=== PATIENT | male | born 1970 | race American Indian/Alaskan Native ===

== ENCOUNTER 2018-07-29 04:33 | Inpatient (IN) | payer OTHER ==
[2018-07-29] MEDS ORDERED: DUONEB *Not for PRN Use IH ONE ×2 (04:55→04:56)
[2018-07-29] MEDS ORDERED: PROVENTIL IH ONE ×4 (04:55→08:30)
--- NOTE | 2018-07-29 04:57 | Emergency Department Report ---
Chief Complaint: Dyspnea/Respdistress Stated Complaint: JOHANNA Time Seen by Provider: 07/29/18 04:45 - HPI History of Present Illness: 48-year-old -[place] male presents to the emergency room for dyspnea for 1 day. Patient complains of productive cough of yellow sputum. Patient reports pain to his left ribs. Patient reports that he has run out of his asthma medication for 2 months really only needed it for 1 day. - ROS Review of Systems: Dyspnea, rib pain, wheezing, productive cough Fever no chills - Exam Vital Signs: Vital Signs 07/29/18 07/29/18 07/29/18 04:40 04:42 04:44 Temperature 98.7 F Pulse Rate 77 106 H Respiratory 20 17 20 Rate Blood Pressure 125/78 153/109 O2 Sat by Pulse 80 L 99 80 L Oximetry Physical Exam: GENERAL APPEARANCE: Well developed, well nourished, in no acute distress. SKIN: Inspection of the skin reveals no rashes, ulcerations or petechiae. HEENT: The sclerae were anicteric and conjunctivae were pink and moist. Extraocular movements were intact and pupils were equal, round, NECK: Supple and symmetric. CHEST: Normal AP diameter and normal contour without any kyphoscoliosis. LUNGS: Auscultation of the lungs revealed rhonchus throughout with diminished breath sounds bilateral CARDIOVASCULAR: There was a regular rate and rhythm without any murmurs, gallops , rubs MSE screening note: Focused history and physical exam performed. Due to findings the following was ordered: CBC CMP, d-dimer, chest x-ray portable, IV insertion, Katherin Medrol 125 mg IV. mgso4 2grams IV ED Disposition for MSE Condition: Stable
[2018-07-29] MEDS ORDERED: MAGNESIUM SULFATE 2GM/50ML 2 GM/50 ML BAG IV ONE (05:03)
[2018-07-29] MEDS ORDERED: ATROVENT IH ONE (05:07)
--- NOTE | 2018-07-29 05:18 | XRay Report ---
FINAL REPORT EXAM: XR CHEST 1V AP HISTORY: sob sat 80, wheezing TECHNIQUE: A portable upright view of the chest was obtained. FINDINGS: The lungs are hyperinflated with flattening of the hemidiaphragms. There are no infiltrates or congestion. The heart size is normal. Pleural fluid is not seen. The skeletal structures are well-maintained. IMPRESSION: Hyperinflation. No infiltrates or congestion.
[2018-07-29 05:24] LABS: Basophils % (Auto) 0.3 % (0.0-1.8); Eosinophils # (Auto) 0.2 K/mm3 (0.0-0.4); Eosinophils % (Auto) 1.5 % (0.0-4.3); Hematocrit 44.9 % (35.5-45.6); Hemoglobin 14.4 gm/dl (11.8-15.2); Lymphocytes # (Auto) 2.9 K/mm3 (1.2-5.4); Mean Corpuscular HGB Conc 32 % (32-34); Mean Corpuscular Hemoglobin 26 pg (28-32); Mean Corpuscular Volume 82 fl (84-94); Monocytes % (Auto) 7.2 % (0.0-7.3); Platelet Count 187 K/mm3 (140-440); Red Blood Count 5.47 M/mm3 (3.65-5.03); Red Cell Distribution Width 13.2 % (13.2-15.2)
[2018-07-29 05:41] LABS: Alanine Aminotransferase 68 units/L (7-56); Albumin 4.8 g/dL (3.9-5); BUN/Creatinine Ratio 10; Blood Urea Nitrogen 6 mg/dL (9-20); Calcium 8.8 mg/dL (8.4-10.2); Hemolysis Index 9
[2018-07-29] MEDS ORDERED: SOLU-Medrol IV ONE (06:15)
[2018-07-29] MEDS ORDERED: NORCO 5/325 PO ONE (06:26)
--- NOTE | 2018-07-29 06:59 | Emergency Department Report ---
ED Shortness of Breath HPI - General Chief Complaint: Dyspnea/Respdistress Stated Complaint: JOHANNA Time Seen by Provider: 07/29/18 04:45 Source: patient Mode of arrival: Stretcher Limitations: No Limitations - History of Present Illness Initial Comments: 48-year-old male with a past medical history of asthma presents with shortness of breath 1 day. Associated wheezing and cough productive of yellow sputum. Patient complains of left-sided rib pain worse with palpation and inspiration. No fever, leg edema, or calf tenderness. Patient ran out of his inhaler and nebulizer treatment. Denies history of previous intubations.. 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 Pt denies home O2 use. - Related Data Allergies Allergy/AdvReac Type Severity Reaction Status Date / Time aspirin Allergy Unknown Verified 07/29/18 04:43 ED Review of Systems ROS: Stated complaint: JOHANNA Other details as noted in HPI Comment: All other systems reviewed and negative ED Past Medical Hx - Past Medical History Previous Medical History?: Yes Hx Asthma: Yes - Surgical History Past Surgical History?: Yes Additional Surgical History: right foot - Social History Smoking Status: Current Every Day Smoker Substance Use Type: Alcohol ED Physical Exam - General Limitations: No Limitations - Other Other exam information: General: No limitations, patient is alert in no acute distress Head exam: Atraumatic, normocephalic Eyes exam: Normal appearance ENT: Moist mucous membrane, normal oropharynx Neck exam: Normal inspection, full range of motion, no meningismus nontender Respiratory exam: Bilateral coarse wheezing. Reproducible left-sided chest wall tenderness Cardiovascular: Normal rate and rhythm, normal heart sounds Abdomen: Soft, nondistended, and nontender, with normal bowel sounds, no rebound, or guarding Extremity: Full range of motion normal inspection no deformity, no calf tenderness or edema Back: Normal Inspection, full range of motion, no tenderness Neurologic: Alert, oriented x3, cranial nerves intact, no motor or sensory deficit Psychiatric: normal affect, normal mood Skin: Warm, dry, intact ED Course Vital Signs 07/29/18 07/29/18 07/29/18 04:35 04:36 04:40 Temperature Pulse Rate 77 Pulse Rate [ 80 Throughout] Respiratory 20 Rate Respiratory 20 Rate [ Throughout] Blood Pressure 125/78 O2 Sat by Pulse 91 80 L Oximetry 07/29/18 07/29/18 07/29/18 04:42 04:44 04:47 Temperature 98.7 F Pulse Rate 106 H 76 Pulse Rate [ Throughout] Respiratory 17 20 16 Rate Respiratory Rate [ Throughout] Blood Pressure 153/109 O2 Sat by Pulse 99 80 L 99 Oximetry 07/29/18 07/29/18 07/29/18 04:50 05:00 05:22 Temperature Pulse Rate 85 Pulse Rate [ 86 76 Throughout] Respiratory 21 Rate Respiratory 20 17 Rate [ Throughout] Blood Pressure 136/82 O2 Sat by Pulse 94 Oximetry 07/29/18 07/29/18 07/29/18 05:31 07:01 07:14 Temperature Pulse Rate 72 68 Pulse Rate [ Throughout] Respiratory 17 18 20 Rate Respiratory Rate [ Throughout] Blood Pressure 136/82 136/82 O2 Sat by Pulse 96 95 Oximetry 07/29/18 08:01 Temperature Pulse Rate 84 Pulse Rate [ Throughout] Respiratory 14 Rate Respiratory Rate [ Throughout] Blood Pressure 136/82 O2 Sat by Pulse 77 L Oximetry ED Medical Decision Making - Lab Data Result diagrams: 07/29/18 05:03 07/29/18 05:03 Lab Results 07/29/18 07/29/18 07/29/18 Range/Units 05:03 05:03 05:03 WBC 13.8 H (4.5-11.0) K/mm3 RBC 5.47 H (3.65-5.03) M/mm3 Hgb 14.4 (11.8-15.2) gm/dl Hct 44.9 (35.5-45.6) % MCV 82 L (84-94) fl MCH 26 L (28-32) pg MCHC 32 (32-34) % RDW 13.2 (13.2-15.2) % Plt Count 187 (140-440) K/mm3 Lymph % (Auto) 21.0 (13.4-35.0) % [place] % (Auto) 7.2 (0.0-7.3) % Eos % (Auto) 1.5 (0.0-4.3) % Baso % (Auto) 0.3 (0.0-1.8) % Lymph # 2.9 (1.2-5.4) K/mm3 [place] # 1.0 H (0.0-0.8) K/mm3 Eos # 0.2 (0.0-0.4) K/mm3 Baso # 0.0 (0.0-0.1) K/mm3 Seg Neutrophils % 70.0 (40.0-70.0) % Seg Neutrophils # 9.7 H (1.8-7.7) K/mm3 D-Dimer 140.44 (0-234) ng/mlDDU POC ABG pH (7.35-7.45) POC ABG pCO2 (35-45) POC ABG pO2 (80-105) POC ABG HCO3 POC ABG Total CO2 POC ABG O2 Sat POC ABG Base Excess FiO2 % Sodium 144 (137-145) mmol/L Potassium 4.0 (3.6-5.0) mmol/L Chloride 103.0 (98-107) mmol/L Carbon Dioxide 26 (22-30) mmol/L Anion Gap 19 mmol/L BUN 6 L (9-20) mg/dL Creatinine 0.6 L (0.8-1.5) mg/dL Estimated GFR > 60 ml/min BUN/Creatinine Ratio 10 % Glucose 94 (75-100) mg/dL Calcium 8.8 (8.4-10.2) mg/dL Total Bilirubin 0.20 (0.1-1.2) mg/dL AST 103 H (5-40) units/L ALT 68 H (7-56) units/L Alkaline Phosphatase 76 (35-129) units/L Total Protein 7.8 (6.3-8.2) g/dL Albumin 4.8 (3.9-5) g/dL Albumin/Globulin Ratio 1.6 % 07/29/18 Range/Units 05:07 WBC (4.5-11.0) K/mm3 RBC (3.65-5.03) M/mm3 Hgb (11.8-15.2) gm/dl Hct (35.5-45.6) % MCV (84-94) fl MCH (28-32) pg MCHC (32-34) % RDW (13.2-15.2) % Plt Count (140-440) K/mm3 Lymph % (Auto) (13.4-35.0) % [place] % (Auto) (0.0-7.3) % Eos % (Auto) (0.0-4.3) % Baso % (Auto) (0.0-1.8) % Lymph # (1.2-5.4) K/mm3 [place] # (0.0-0.8) K/mm3 Eos # (0.0-0.4) K/mm3 Baso # (0.0-0.1) K/mm3 Seg Neutrophils % (40.0-70.0) % Seg Neutrophils # (1.8-7.7) K/mm3 D-Dimer (0-234) ng/mlDDU POC ABG pH 7.344 L (7.35-7.45) POC ABG pCO2 53.8 H (35-45) POC ABG pO2 72 L (80-105) POC ABG HCO3 29.3 POC ABG Total CO2 31 POC ABG O2 Sat 93 POC ABG Base Excess 4 FiO2 36 % Sodium (137-145) mmol/L Potassium (3.6-5.0) mmol/L Chloride (98-107) mmol/L Carbon Dioxide (22-30) mmol/L Anion Gap mmol/L BUN (9-20) mg/dL Creatinine (0.8-1.5) mg/dL Estimated GFR ml/min BUN/Creatinine Ratio % Glucose (75-100) mg/dL Calcium (8.4-10.2) mg/dL Total Bilirubin (0.1-1.2) mg/dL AST (5-40) units/L ALT (7-56) units/L Alkaline Phosphatase (35-129) units/L Total Protein (6.3-8.2) g/dL Albumin (3.9-5) g/dL Albumin/Globulin Ratio % - Radiology Data Radiology results: report reviewed EXAM: XR CHEST 1V AP HISTORY: sob sat 80, wheezing TECHNIQUE: A portable upright view of the chest was obtained. FINDINGS: The lungs are hyperinflated with flattening of the hemidiaphragms. There are no infiltrates or congestion. The heart size is normal. Pleural fluid is not seen. The skeletal structures are well-maintained. IMPRESSION: Hyperinflation. No infiltrates or congestion. - Medical Decision Making despite nebs, steroids, mag pt continue to have significant wheeze room air sat 78% incr to 85% on 2 L O2, then 91-92% on 4 L ABG on FIO2 36% + hypoxia and co2 retention with mild acidosis pt denies hx of copd or home O2 use. + long time smoking hx so pt may also have copd in addition to asthma pt will be admitted to for further treatment - Differential Diagnosis asthma, bronchitis, pneumonia Critical Care Time: No Critical care attestation.: If time is entered above; I have spent that time in minutes in the direct care of this critically ill patient, excluding procedure time. ED Disposition Clinical Impression: Status asthmaticus, Hypoxia, Acute respiratory acidosis Disposition: OP ADMIT IP TO THIS HOSP Is pt being admited?: Yes Condition: Stable Time of Disposition: 08:32 (yazan Brar)
--- NOTE | 2018-07-29 10:05 | History and Physical Report ---
History of Present Illness Date of examination: 07/29/18 Date of admission: 07/29/18 08:33 Chief complaint: shortness of breath History of present illness: Patient is a 48-year-old gentleman with a history of asthma and has been out of his albuterol neb and inhaler for the past 3 months woke up at about 3 AM this morning with severe shortness of breath and tight feeling in this long coughing and wheezing. Wanted to withdraw the morning however symptoms getting worse for which his girlfriend called EMS. Was brought to the emergency department. Patient was given multiple breathing treatments with IV Solu-Medrol. Symptoms improved. However he was still wheezing with poor breath sounds. Emergency department and was found to have leukocytosis of 13.8. ABG showed hypoxia of PO2 of 72. S3 was 100 [address].m. LT was 60. Patient has a history of alcohol use disorder. He smokes about a pack a day for the past 33 years. Admission was requested. Patient denies any fever. Denies any chest pain. No syncope. John's medication from [place] however misplaced his last prescription was given weeks ago Past History Past Medical History: other (asthma) Social history: smoking, alcohol abuse Family history: other (asthma) Medications and Allergies Allergies Allergy/AdvReac Type Severity Reaction Status Date / Time aspirin Allergy Unknown Verified 07/29/18 04:43 Home Medications Medication Instructions Recorded Confirmed Last Taken Type ALBUTEROL Inhaler(NF) [VENTOLIN 1 puff INHALATION PRN PRN 07/29/18 07/29/18 Unknown History Inhaler(NF)] Active Meds: Active Medications Albuterol/Ipratropium (Duoneb *Not For Prn Use*) 1 ampul IH Q6HRT [facility] Enoxaparin Sodium (Lovenox) 40 mg SUB-Q QDAY DEMARCO Levofloxacin/Dextrose (Levaquin 750mg/150ml) 750 mg in 150 mls @ 100 mls/hr IV Q24HR DEMARCO; Protocol Methylprednisolone Sodium Succinate (Solu-Medrol) 40 mg IV Q6HR DEMARCO Review of systems Constitutional: Well Nouridhed and Well developed. Head: NC/ AT Eyes: Denies any visual impairments. No discharge from the eyes Nose: Denies any rhinorrhea or epistaxis Throats: Denies any post nasal drainage. Ears: Denies any hearing deficits Cardiovascular system: Denies any chest pain, shortness of breath, orthopnea, paroxysmal nocturnal dyspnea, or palpitation. Respiratory system: Has cough, difficulty breathing, wheezing, no pleuritic chest pain, Gastrointestinal system: Denies any abdominal pain, nausea vomiting, hematemesis or melena. Neurological system: Denies any headache, slurred speech, facial droop, lateralizing weakness Genitalia system: Denies any dysuria, urinary frequency or urgency, urethral discharge Skin: No rashes, hyperpigmented spots. Hematological: Denies any cervical tenderness hemorrhages or petechia. Immunological: Denies any multiple septic spots, Lymphatic: Denies any generalized lymphadenopathy. Endocrine: Denies any polyuria, polydipsia, polyphagia. No heat or cold intolerance. Musculoskeletal system: No joint pain or swelling. Psych: No visual, tactile, auditory or hallucination Exam - Physical Exam Narrative exam: Constitutional: Well-nourished well-developed. In no distress Head: Normocephalic atraumatic Eyes: Pupils are equal round and reactive to light Nose: No enlarged turbinates, no septal deviation. Mouth: Moist mucous membranes. Neck: Supple no thyromegaly. No bruit. No JVD Heart: Regular rate and rhythm, S1-S2 abnormal. No rubs murmurs or gallop Lungs: Prolonged expiratory wheeze. no rales Abdomen: Soft, nontender. Bowel sound are present. Extremities: No edema no cyanosis and no clubbing. Neuro: Alert oriented Oriented x3. No focal sensory or motor deficit. Skin: No rashes no hyperemic spots Psychiatry: Euthymic. Calm. - Constitutional Vitals: Temp Pulse Resp BP Pulse Ox 98.7 F 72 14 136/82 96 07/29/18 04:42 07/29/18 09:01 07/29/18 09:01 07/29/18 09:01 07/29/18 09:01 Results - Labs CBC & Chem 7: 07/29/18 05:03 07/29/18 05:03 Labs: Abnormal lab results 07/29/18 07/29/18 07/29/18 Range/Units 05:03 05:03 05:07 WBC 13.8 H (4.5-11.0) K/mm3 RBC 5.47 H (3.65-5.03) M/mm3 MCV 82 L (84-94) fl MCH 26 L (28-32) pg [place] # 1.0 H (0.0-0.8) K/mm3 Seg Neutrophils # 9.7 H (1.8-7.7) K/mm3 POC ABG pH 7.344 L (7.35-7.45) POC ABG pCO2 53.8 H (35-45) POC ABG pO2 72 L (80-105) BUN 6 L (9-20) mg/dL Creatinine 0.6 L (0.8-1.5) mg/dL AST 103 H (5-40) units/L ALT 68 H (7-56) units/L Assessment and Plan Patient is a 48-year-old gentleman with a history of asthma and has been out of his albuterol neb and inhaler for the past 3 months woke up at about 3 AM this morning with severe shortness of breath and tight feeling in this long coughing and wheezing. Wanted to withdraw the morning however symptoms getting worse for which his girlfriend called EMS. Was brought to the emergency department. Patient was given multiple breathing treatments with IV Solu-Medrol. Symptoms improved. However he was still wheezing with poor breath sounds. Emergency department and was found to have leukocytosis of 13.8. ABG showed hypoxia of PO2 of 72. S3 was 100 p.m. LT was 60. Patient has a history of alcohol use disorder. He smokes about a pack a day for the past 33 years. Admission was requested. Patient denies any fever. Denies any chest pain. No syncope. John's medication from [place] however misplaced his last prescription was given weeks ago - Asthma exacerbation Chest x-ray shows hyperinflated lungs. Comments patient on DuoNeb, IV Solu-Medrol IV Levaquin Montelukast - Difficulty in breathing with hypoxia Secondary to asthma exacerbation Supplemental oxygen - Tobacco use disorder Nicotine patch Tobacco cessation counseling - Alcohol use disorder Counseling on alcohol cessation was done - DVT prophylaxis: With Lovenox subcutaneous
[2018-07-29] MEDS ORDERED: PROVENTIL IH PRN (10:25)
[2018-07-29] MEDS: DUONEB *Not for PRN Use IH SCH ×4 (11:07→22:41)
[2018-07-29] MEDS: SOLU-Medrol IV SCH ×3 (13:14→23:18)
[2018-07-29] MEDS: LEVAQUIN 750MG/150ML 750 MG/150 ML BAG IV SCH (13:14)
[2018-07-29] MEDS ORDERED: TYLENOL PO PRN (13:15)
[2018-07-29] MEDS: LOVENOX SUB-Q SCH (13:15)
[2018-07-29] MEDS ORDERED: ZOFRAN IV PRN (15:56)
[2018-07-29] MEDS ORDERED: ATIVAN IV PRN ×3 (15:57)
[2018-07-29] MEDS: HABITROL TD SCH (16:11)
[2018-07-29] MEDS: ATIVAN PO PRN ×2 (16:42→22:00)
[2018-07-30] MEDS: DUONEB *Not for PRN Use IH SCH ×4 (02:47→20:31)
[2018-07-30] MEDS: SOLU-Medrol IV SCH ×4 (05:45→23:31)
[2018-07-30] MEDS: LOVENOX SUB-Q SCH (09:27)
[2018-07-30] MEDS: LEVAQUIN 750MG/150ML 750 MG/150 ML BAG IV SCH (09:27)
[2018-07-30] MEDS: HABITROL TD SCH (09:27)
[2018-07-30] MEDS: ATIVAN PO PRN ×2 (09:27→17:14)
--- NOTE | 2018-07-30 16:14 | Progress Note ---
Assessment and Plan Assessment and plan: Patient is a 48-year-old gentleman with a history of asthma and has been out of his albuterol neb and inhaler for the past 3 months, pw sob, chest tightness and wheezing current every day smoker, - Asthma exacerbation Continue steroids nebulizers - Acute respiratory failure with hypoxia Secondary to asthma exacerbation Supplemental oxygen, continue to wean oxygen - Tobacco use disorder Nicotine patch Tobacco cessation counseling done - Alcohol use disorder Counseling on alcohol cessation was done - DVT prophylaxis: With Lovenox subcutaneous History Interval history: Review of systems Constitutional: No fevers, no malaise, no joint pains CVS: No chest pain, no orthopnea, no dyspnea on exertion, no pedal edema GI: No abdominal pain, no diarrhea, no vomiting, no constipation Respiratory: Complaining of shortness of breath, wheezing Hospitalist Physical - Physical exam Narrative exam: General.: Appears well, no distress, nontoxic HEENT: Moist mucous membranes, extraocular muscles intact, no lymphadenopathy Neck: supple Cardiac: S1-S2 heard Lungs: Decreased air entry, wheezing throughout Abdomen: soft , nontender, nondistended, bowel sounds positive Extremities: no edema clubbing or cyanosis Skin: no rash or lesions Neurologic: no gross focal deficits Psych: appropriate behavior, appropriate mood, corporative, judgment intact - Constitutional Vitals: Temp Pulse Resp BP Pulse Ox 98.2 F 96 H 18 135/76 95 07/30/18 05:23 07/30/18 13:34 07/30/18 13:34 07/30/18 05:23 07/30/18 13:26 Results - Labs CBC & Chem 7: 07/29/18 05:03 07/29/18 05:03 Labs: Laboratory Last Values WBC 13.8 K/mm3 (4.5-11.0) H 07/29/18 05:03 RBC 5.47 M/mm3 (3.65-5.03) H 07/29/18 05:03 Hgb 14.4 gm/dl (11.8-15.2) 07/29/18 05:03 Hct 44.9 % (35.5-45.6) 07/29/18 05:03 MCV 82 fl (84-94) L 07/29/18 05:03 MCH 26 pg (28-32) L 07/29/18 05:03 MCHC 32 % (32-34) 07/29/18 05:03 RDW 13.2 % (13.2-15.2) 07/29/18 05:03 Plt Count 187 K/mm3 (140-440) 07/29/18 05:03 Lymph % (Auto) 21.0 % (13.4-35.0) 07/29/18 05:03 [place] % (Auto) 7.2 % (0.0-7.3) 07/29/18 05:03 Eos % (Auto) 1.5 % (0.0-4.3) 07/29/18 05:03 Baso % (Auto) 0.3 % (0.0-1.8) 07/29/18 05:03 Lymph # 2.9 K/mm3 (1.2-5.4) 07/29/18 05:03 [place] # 1.0 K/mm3 (0.0-0.8) H 07/29/18 05:03 Eos # 0.2 K/mm3 (0.0-0.4) 07/29/18 05:03 Baso # 0.0 K/mm3 (0.0-0.1) 07/29/18 05:03 Seg Neutrophils % 70.0 % (40.0-70.0) 07/29/18 05:03 Seg Neutrophils # 9.7 K/mm3 (1.8-7.7) H 07/29/18 05:03 D-Dimer 140.44 ng/mlDDU (0-234) 07/29/18 05:03 POC ABG pH 7.344 (7.35-7.45) L 07/29/18 05:07 POC ABG pCO2 53.8 (35-45) H 07/29/18 05:07 POC ABG pO2 72 (80-105) L 07/29/18 05:07 POC ABG HCO3 29.3 07/29/18 05:07 POC ABG Total CO2 31 07/29/18 05:07 POC ABG O2 Sat 93 07/29/18 05:07 POC ABG Base Excess 4 07/29/18 05:07 FiO2 36 % 07/29/18 05:07 Sodium 144 mmol/L (137-145) 07/29/18 05:03 Potassium 4.0 mmol/L (3.6-5.0) 07/29/18 05:03 Chloride 103.0 mmol/L (98-107) 07/29/18 05:03 Carbon Dioxide 26 mmol/L (22-30) 07/29/18 05:03 Anion Gap 19 mmol/L 07/29/18 05:03 BUN 6 mg/dL (9-20) L 07/29/18 05:03 Creatinine 0.6 mg/dL (0.8-1.5) L 07/29/18 05:03 Estimated GFR > 60 ml/min 07/29/18 05:03 BUN/Creatinine Ratio 10 % 07/29/18 05:03 Glucose 94 mg/dL (75-100) 07/29/18 05:03 Calcium 8.8 mg/dL (8.4-10.2) 07/29/18 05:03 Total Bilirubin 0.20 mg/dL (0.1-1.2) 07/29/18 05:03 AST 103 units/L (5-40) H 07/29/18 05:03 ALT 68 units/L (7-56) H 07/29/18 05:03 Alkaline Phosphatase 76 units/L (35-129) 07/29/18 05:03 Total Protein 7.8 g/dL (6.3-8.2) 07/29/18 05:03 Albumin 4.8 g/dL (3.9-5) 07/29/18 05:03 Albumin/Globulin Ratio 1.6 % 07/29/18 05:03
[2018-07-31] MEDS: SOLU-Medrol IV SCH ×2 (06:16→12:27)
[2018-07-31] MEDS: DUONEB *Not for PRN Use IH SCH ×2 (08:01→17:07)
[2018-07-31] MEDS: LOVENOX SUB-Q SCH (09:18)
[2018-07-31] MEDS: HABITROL TD SCH (09:20)
[2018-07-31] MEDS ORDERED: LEVAQUIN PO SCH (10:00)
[2018-07-31 12:27] VITALS: BP 129/83
[2018-07-31] MEDS: ATIVAN PO PRN (12:31)
--- NOTE | 2018-07-31 22:50 | Discharge Summary ---
Providers - Providers Date of Admission: 07/29/18 08:33 Attending physician: FERNANDO DENT MD Primary care physician: PINMAKER Hospitalization Condition: Stable Disposition: DC-01 TO HOME OR SELFCARE Exam - Constitutional Vitals: Temp Pulse Resp BP Pulse Ox 98.1 F 83 16 129/83 96 07/31/18 11:44 07/31/18 11:44 07/31/18 11:44 07/31/18 11:44 07/31/18 11:44 Plan Follow up with: PRIMARY CARE, [Primary Care Provider] - 3-5 Days Prescriptions: ALBUTEROL Inhaler(NF) [VENTOLIN Inhaler(NF)] 1 puff INHALATION Q4H PRN #1 inha PRN Reason: Wheezing ALBUTEROL NEB's [Proventil 0.083% NEBS] 2.5 mg IH QID PRN #120 neb PRN Reason: Wheezing levoFLOXacin [Levaquin TAB] 750 mg PO DAILY #3 tablet Nicotine [Habitrol] 21 mg TD QDAY #30 patch Prednisone [predniSONE 10 mg (6-Day Pack, 21 Tabs)] 10 mg PO .TAPER #1 tab.ds.pk Other Discharge Orders: Nebulizer (Amb) Location: None Selected
== END 2018-07-31 18:28 | disposition home or self-care (01) | DRG 189 ==
LOC: ED 04:33 → 3A 08:33
PROVIDERS: ADMIT Family Medicine; ATTEND Internal Medicine
PROC: 4A033R1 Measurement of Arterial Saturation, Peripheral, Percutaneous Approach (ICD-10-PCS; principal; 2018-07-29)
DX: J96.01 Acute respiratory failure with hypoxia (principal); J45.901 Unspecified asthma with (acute) exacerbation; E87.2 Acidosis; J45.902 Unspecified asthma with status asthmaticus; D72.829 Elevated white blood cell count, unspecified; F17.200 Nicotine dependence, unspecified, uncomplicated; Z71.6 Tobacco abuse counseling; Z72.89 Other problems related to lifestyle; Z71.41 Alcohol abuse counseling and surveillance of alcoholic; Z82.5 Family history of asthma and other chronic lower respiratory diseases; Z88.6 Allergy status to analgesic agent; Z79.899 Other long term (current) drug therapy
CPT/HCPCS: 36415; 71045; 80053; 82803; 85025; 85379; 93005; 93010; 94640; 94644; 94760; 96365; 96375; 99406; J1650; J1956; J2405; J2920; J2930; J3475